=== PATIENT | female | born 1950 ===

== ENCOUNTER 2021-10-22 05:49 | Day surgery (SDC) | payer OTHER ==
[~2021-10-22 05:49] MED LIST: ZESTRIL10 M1 PO
[2021-10-22] MEDS ORDERED: ULTRACET PO (12:38)
[2021-10-22] MEDS ORDERED: MACROBID 100 M100 MG PO (12:38)
== END 2021-10-22 17:00 | disposition home or self-care (01) ==
LOC: CIR.AMB 05:49
PROVIDERS: ATTEND Obstetrics & Gynecology Gynecology
DX: N81.12 Cystocele, lateral (principal); N81.11 Cystocele, midline; N81.5 Vaginal enterocele; I10 Essential (primary) hypertension; Z87.891 Personal history of nicotine dependence